=== PATIENT | male | born 1960 | race Two or more races ===

== ENCOUNTER 2025-11-08 14:19 | Emergency (ER) | payer BC ==
[~2025-11-08] VITALS: Ht 182.9 cm; Wt 95.3 kg
[2025-11-08] MEDS ORDERED: DEXAMETHASONE SODIUM PHOSPHATE 4 MG/ML VIAL IM STA (17:34)
[2025-11-08] MEDS ORDERED: KETOROLAC TROMETHAMINE 30 MG VIAL IM STA (17:34)
[2025-11-08] MEDS ORDERED: ORPHENADRINE CITRATE 30 MG/ML AMPUL IM STA (17:35)
[2025-11-08] MEDS ORDERED: MEDROLPACK PO (19:10)
== END 2025-11-08 19:34 | disposition home or self-care (01) ==
LOC: ER 14:20
DX: M79.641 Pain in right hand (principal); R22.31 Localized swelling, mass and lump, right upper limb